=== PATIENT | male | born 1975 | race Caucasian/White ===

== ENCOUNTER 2018-06-25 16:22 | Emergency (ER) | payer OTHER ==
[~2018-06-25] VITALS: Ht 147.3 cm; Wt 49.9 kg
[2018-06-25 16:30] VITALS: Ht 147.3 cm; Wt 49.9 kg
[2018-06-25 17:18] LABS: BASOPHIL % 0.4 % (0-2); PLATELET COUNT 249 x10^3mcL (130-400)
[2018-06-25 17:44] LABS: CALCIUM 9.2 mg/dL (8.5-10.1); CARBON DIOXIDE 23.7 mmol/L (21-32); CHLORIDE SERUM 106 mmol/L (98-107); GFR1 > 60 mL/min; GLUCOSE SERUM 94 mg/dL (74-106); SODIUM SERUM 138 mmol/L (136-145)
[2018-06-25 17:48] LABS: ALKALINE PHOSPHATASE 106 U/L (46-116); ALT/SGPT 52 U/L (16-63); AST/SGOT 18 U/L (15-37); BILIRUBIN TOTAL 0.1 mg/dL (0.20-1.00); TOTAL PROTEIN, SERUM 7.1 g/dL (6.4-8.2)
[2018-06-25 17:49] LABS: ALBUMIN 3.3 g/dL (3.4-5.0)
[2018-06-25 18:10] LABS: AMPHETAMINE QUAL UR NONE DETECTED (See below)
[2018-06-25 19:53] VITALS: BP 111/71
== END 2018-06-25 19:53 | disposition home or self-care (01) ==
LOC: ED 16:22
PROVIDERS: Emergency Medicine
DX: R41.82 Altered mental status, unspecified (principal); E11.649 Type 2 diabetes mellitus with hypoglycemia without coma
CPT/HCPCS: 36415; 82962